=== PATIENT | female | born 1985 | race Caucasian/White ===

== ENCOUNTER 2019-01-26 09:48 | Outpatient (CLI) | payer BC | END 2019-01-26 09:49 | disposition home or self-care (01) | LOC: CTENTCT 09:48 | PROVIDERS: ATTEND Otolaryngology Plastic Surgery within the Head & Neck | DX: J32.9 Chronic sinusitis, unspecified (principal) | CPT/HCPCS: 70486 ==

== ENCOUNTER 2019-02-22 10:42 | Day surgery (SDC) | payer BC ==
[2019-02-21 11:58] VITALS: BMI 32.2
[2019-02-22] MEDS ORDERED: Oxymetazoline HCl 0.05% ( 15 ML ) ONE ×2 (11:36→12:27)
[2019-02-22 12:25] LABS: BHCG - Serum Negative (NEGATIVE); Pregs Control Background? CLEAR/WHITE (CLR/WHITE); Pregs Control Bar Appear? YES (CONTROL BAR)
[2019-02-22] MEDS ORDERED: Bacitracin Zinc Ointment 30 gm TUBE ONE (12:27)
[2019-02-22] MEDS ORDERED: Lidocaine 1% w/Epinephrine 1:100K 20 ML VIAL ONE (12:27)
[2019-02-22] MEDS ORDERED: Ferric Subsulfate (ASTRINGYN) 8 ML VIAL ONE (12:27)
[2019-02-22] MEDS ORDERED: Fentanyl 100 MCG/2 ML VIAL ONE ×3 (12:37→14:44)
[2019-02-22] MEDS ORDERED: methylPREDNISolone Acetate 40 mg/ml Vial ONE (13:06)
[2019-02-22] MEDS ORDERED: Ophthalmic Irrigation Solution 15 ML ONE (13:47)
[2019-02-22] MEDS ORDERED: Meperidine HCl/PF 25 MG/ML VIAL ONE (14:16)
[2019-02-22] MEDS ORDERED: Hydrocodone-Acetamin 15 ML UDCUP ONE (15:51)
[2019-02-22] MEDS ORDERED: Succinylcholine Chloride 20 MG/ML 10 ml SYRINGE FS ONE (18:30)
[2019-02-22] MEDS ORDERED: ePHEDrine 50 MG/ML VIAL ONE (18:30)
[2019-02-22] MEDS ORDERED: Rocuronium Bromide 10 MG/ML (10ML VIAL) ONE (18:30)
[2019-02-22] MEDS ORDERED: Ondansetron PF 4 MG/2 ML Vial ONE (18:30)
[2019-02-22] MEDS ORDERED: Lidocaine 1% PF 5 ML VIAL ONE (18:30)
[2019-02-22] MEDS ORDERED: Dexamethasone 20 MG/5 ML VIAL ONE (18:30)
[2019-02-22] MEDS ORDERED: PROPOFOL 200 MG/20 ML VIAL ONE (18:30)
--- NOTE | 2019-02-23 10:32 | OP ---
DATE OF PROCEDURE: 02/22/2019 PREOPERATIVE DIAGNOSES: 1. Chronic rhinosinusitis. 2. Nasal septal deviation. 3. Acquired nasal deformity. 4. Bilateral inferior turbinate hypertrophy. 5. Chronic adenotonsillitis. 6. Adenotonsillar hypertrophy. POSTOPERATIVE DIAGNOSES: 1. Chronic rhinosinusitis. 2. Nasal septal deviation. 3. Acquired nasal deformity. 4. Bilateral inferior turbinate hypertrophy. 5. Chronic adenotonsillitis. 6. Adenotonsillar hypertrophy. PROCEDURES PERFORMED: 1. Bilateral endoscopic sinus surgery, total ethmoidectomies. 2. Bilateral endoscopic sinus surgery, maxillary antrostomies. 3. Bilateral endoscopic sinus surgery, frontal sinusotomies. 4. Nasal septoplasty. 5. Bilateral inferior turbinate submucosal resection. 6. Tonsillectomy and adenoidectomy. ESTIMATED BLOOD LOSS: 50 mL. COMPLICATIONS: None. ANESTHESIA: GETA. DESCRIPTION OF PROCEDURE: TONSILLECTOMY AND ADENOIDECTOMY: After consent was obtained, the patient was identified, brought to the operating room, and placed on the operating table in the supine position. General endotracheal anesthesia and intravenous access were obtained and we proceeded with positioning the patient for oropharyngeal surgery. Oropharyngeal exposure was obtained with a Jeff-Marcelino mouth gag after a head drape was placed and secured with a towel clip. The Jeff-Marcelino mouth gag was then suspended from the Zuniga tray and palatal elevation was achieved with a red rubber catheter. The right tonsil was addressed first. We used a curved Allis to grasp the tonsil and retract it medially as an anterior pillar incision was made. The retrotonsillar fascial plane was then established and blunt dissection was performed with the suction cautery. Blood vessels were anticipated, identified, and cauterized as they were encountered. Ultimately, dissection was carried to the posterior tonsillar pillar mucosa which was incised hemostatically, as well as the base of tongue connection. The tonsil was then passed off as a specimen and bleeding points within the tonsillar bed were cauterized under direct visualization. We subsequently turned our attention to the contralateral side, where using a similar technique, a near identical procedure was performed. Again, the tonsil was grasped and retracted medially with a curved Allis. The retrotonsillar fascial plane was established and while the anterior pillar was retracted medially. The hemostatic blunt dissection of the tonsil with a suction cautery was performed with blood vessels anticipated, identified, and cauterized as they were encountered. Again, dissection continued to the base of tongue and posterior tonsillar pillar mucosa which was incised in a hemostatic fashion. The tonsillar beds were then carefully inspected and bleeding points were identified and cauterized with a suction cautery. After this portion of the procedure, hemostasis was completely obtained. Under direct mirror visualization, we visualized the adenoid pad. Under direct mirror visualization, we removed the bulk of the adenoid tissue with the adenoid curette. We then packed the nasopharynx for an appropriate period of time with Qin-[id number] tonsillar sponges. After a period of observation, we removed the pack. Under indirect mirror visualization, we obtained hemostasis and vaporization of residual adenoid tissue with electrocautery. The patient's oral cavity was copiously irrigated with iced saline and subsequently suctioned. After completion of the procedure, the nasal cavity and oropharynx were irrigated and suctioned as were the gastric contents. SEPTOPLASTY AND BILATERAL INFERIOR TURBINATE SUBMUCOSAL RESECTION: Afrin pledgets were then placed into the nasal cavity bilaterally. The patient was placed into the beach chair position and was prepped and draped for standard nasal surgical procedures. Following this, the Afrin pledgets were removed and 1% lidocaine with 1:100,000 epinephrine was injected via a 27 gauge needle into the nasal septum, the inferior turbinate and the middle turbinate bilaterally. Following this, a Hemal incision was made on the left nasal septum and mucoperichondrial flaps were elevated. A strong 2 cm caudal and dorsal cartilage strut was left intact as the deviated portions of the nasal cartilage and bone was removed. A 4-0 gut stitch was used to reapproximate the nasal mucoperichondrial flaps as well as close the Hemal incision. Following this, the submucosal microdebrider was used to puncture and submucosally resect the anterior-inferior portions of the hypertrophic inferior turbinates. The inferior turbinates were laterally outfractured with a [place] elevator. BILATERAL ENDOSCOPIC SINUS SURGERY, TOTAL ETHMOIDECTOMIES AND MAXILLARY ANTROSTOMIES: Following this, 1% lidocaine with 1:100,000 epinephrine were injected into the middle turbinates and lateral nasal wall bilaterally. Following this, the 0-degree endoscope was used to visualize the middle turbinate and the middle turbinate was medially fractured using a [place] elevator. Following this, the uncinate process was identified and was examined. The uncinate process was noted to be inflamed and laterally displaced bilaterally. Following this, a ball-ended probe was used to anteriorly fracture the uncinate process bilaterally. Following this, the 0-degree microdebrider and the up-biting Blakesley forceps were used to remove the uncinate process bilaterally. Following this, the natural maxillary sinus ostia was identified with the 0-degree endoscope and the ball-ended probe. The natural maxillary ostia were then widened using a 40-degree microdebrider and the straight Blakesley forceps bilaterally. Following this, the ethmoidal bulla was identified bilaterally. A 0-degree microdebrider was used to puncture the ethmoidal bulla on its medial and inferior aspect bilaterally. Following this, the 0-degree microdebrider and the up-biting Blakesley forceps were used to remove the ethmoidal bulla. Following this, the grand lamella was identified posterior to this area and was punctured using the 0-degree microdebrider bilaterally. Following this, the ethmoidal cells were opened from the posterior to the anterior using the 0-degree microdebrider, the 40-degree microdebrider and the up-biting Blakesley forceps bilaterally. Following this, the 45-degree endoscope and the 40-degree microdebrider blade were used to further remove the anterior ethmoidal cells to the level of the frontal sinus recess bilaterally. BILATERAL ENDOSCOPIC SINUS SURGERY, FRONTAL SINUSOTOMIES: Following this, the 45-degree endoscope was advanced into the middle meatus. The remnant of the anterior ethmoidal cells was visualized, and the frontal sinus ostia were identified bilaterally. Using the 40-degree microdebrider blade and the upbiting Blakesley forceps, the frontal sinus ostia were widened bilaterally. Following this, the severe caudal strut showed a 90-degree deviation, and the strut was removed. A new strut was constructed out of previously harvested nasal septal cartilage and was anchored to the columella skin via a 3-0 Monocryl stitch. Following this, horizontal mattress stitches were placed securing and repositioning the lower alar cartilage footplates to the septum with a 4-0 Monocryl stitch. Following this, William splints were placed and secured. The patient tolerated the procedure well. The patient was then awakened and transferred to the recovery room, where the patient remained in stable condition prior to discharge to Day Stay. Job ID: [id number]
== END 2019-02-23 16:40 | disposition home or self-care (01) ==
LOC: SDC 10:42
PROVIDERS: ATTEND Otolaryngology Plastic Surgery within the Head & Neck
PROC: 09TV8ZZ Resection of Left Ethmoid Sinus, Via Natural or Artificial Opening Endoscopic (ICD-10-PCS; principal; 2019-02-22)
PROC: 099V8ZZ Drainage of Left Ethmoid Sinus, Via Natural or Artificial Opening Endoscopic (ICD-10-PCS; principal; 2019-02-22)
PROC: 09TU8ZZ Resection of Right Ethmoid Sinus, Via Natural or Artificial Opening Endoscopic (ICD-10-PCS; principal; 2019-02-22)
PROC: 09SM0ZZ Reposition Nasal Septum, Open Approach (ICD-10-PCS; principal; 2019-02-22)
PROC: 0CTPXZZ Resection of Tonsils, External Approach (ICD-10-PCS; principal; 2019-02-22)
PROC: 09TL7ZZ Resection of Nasal Turbinate, Via Natural or Artificial Opening (ICD-10-PCS; principal; 2019-02-22)
PROC: 099U8ZZ Drainage of Right Ethmoid Sinus, Via Natural or Artificial Opening Endoscopic (ICD-10-PCS; principal; 2019-02-22)
PROC: 099S8ZZ Drainage of Right Frontal Sinus, Via Natural or Artificial Opening Endoscopic (ICD-10-PCS; principal; 2019-02-22)
PROC: 099T8ZZ Drainage of Left Frontal Sinus, Via Natural or Artificial Opening Endoscopic (ICD-10-PCS; principal; 2019-02-22)
PROC: 0CTQXZZ Resection of Adenoids, External Approach (ICD-10-PCS; principal; 2019-02-22)
DX: J32.9 Chronic sinusitis, unspecified (principal); J34.2 Deviated nasal septum; J35.03 Chronic tonsillitis and adenoiditis; J34.3 Hypertrophy of nasal turbinates; J34.89 Other specified disorders of nose and nasal sinuses; Z79.899 Other long term (current) drug therapy; Z91.040 Latex allergy status; Z91.09 Other allergy status, other than to drugs and biological substances
CPT/HCPCS: 36415; 84703; 85014; 88304; J0131; J1030; J1100; J2001; J2175; J2405; J2704; J3010; J3490